=== PATIENT | male | born 1980 | race Caucasian/White ===

== ENCOUNTER → 2021-06-28 | Day surgery (SDC) | payer OTHER ==
[~2021-06-28] VITALS: Ht 165.1 cm; Wt 65.8 kg
[~2021-06-28] MED LIST: CLARITIN10 MG PO; FLONASE ALLER15.8 ML; NORVASC5 MG PO
[2021-06-28 06:50] LABS: HCT 42.4 % (42.0-52.0); HGB 14.7 g/dl (13.2-18.0); MCH 32.7 pg (25.0-31.0); MCHC 34.7 g/dL (32.0-36.0); MCV 94.2 fL (78.0-100.0); MPV 9.7 fL (6.0-9.5); RBC 4.5 M/uL (4.70-6.00); RDW 12.5 % (11.5-14.0); WBC 4.3 K/uL (4.0-10.5)
[2021-06-28 08:43] LABS: ALBUMIN 3.8 g/dL (3.4-5.0); BILIRUBIN - TOTAL 0.3 mg/dL (0.2-1.0); BUN/CREAT RATIO (CALC) 14.8 RATIO; CREATININE 0.81 mg/dL (0.67-1.17); GLOBULIN (CALCULATION) 3.2 g/dL; POTASSIUM 4.2 mmol/L (3.5-5.1)
== END | disposition home or self-care (01) ==
LOC: FAS 06:02
PROVIDERS: Orthopaedic Surgery
DX: G56.03 Carpal tunnel syndrome, bilateral upper limbs (principal)
CPT/HCPCS: 36415; 80053; J1100; J1885; J2250; J2405; J2704; J3010; J7120